=== PATIENT | female | born 1985 | race Caucasian/White ===

== ENCOUNTER 2020-08-20 14:58 | Emergency (ER) | payer MEDICAID ==
[2020-08-20] MEDS ORDERED: BACITRACIN ZINC OINT 1 PACKET TOP STA (15:36)
[2020-08-20] MEDS ORDERED: HYDROcod/ACETAM 5/325 MG TABLET PO STA (15:36)
--- NOTE | 2020-08-20 15:43 | ED Physician Documentation ---
History of Present Illness - Stated complaint Stated Complaint: LT ARM INJURY - Chief complaint Chief Complaint: Trauma Ext - History obtained from History obtained from: Patient - History of Present Illness Timing: Today Pain level max: 8 Pain level now: 6 - Additonal information Additional information: Patient is a 34-year-old female who presents to the emergency department after a fall off of a retaining wall today. She scraped her left arm on the concrete driveway. Complains of pain to the left forearm, left elbow, left humerus and left shoulder. Worse with movement, better with rest. Tetanus is up-to-date. Patient is right-handed. No head injury. No neck or back pain. No numbness or tingling. She is not on blood thinners. Denies any possibility of . Review of Systems Constitutional: denies: Fever, Chills GI: denies: Vomiting, Diarrhea Skin: denies: Rash Musculoskeletal: denies: Neck pain, Back pain Neurologic: denies: Headache PD PAST MEDICAL HISTORY - Past Medical History Past Medical History: Yes Neuro: Migraines Psych: Post traumatic stress disorder - Past Surgical History Past Surgical History: Yes General: Cholecystectomy Ortho: Other - Present Medications Home Medications: Ambulatory Orders Medication Instructions Recorded Confirmed Amitriptyline [Elavil] 10 mg PO DAILY 08/20/20 08/20/20 Escitalopram Oxalate [Lexapro] 20 mg PO DAILY 08/20/20 08/20/20 HYDROcod/ACETAM 5/325 [Johnson 5/325] 1 - 2 ea PO Q6H PRN #14 tablet 08/20/20 Propranolol [Inderal] 20 mg PO BID 08/20/20 08/20/20 traZODone [Desyrel] 50 mg PO HS 08/20/20 08/20/20 - Allergies Allergies/Adverse Reactions: Allergies Allergy/AdvReac Type Severity Reaction Status Date / Time No Known Drug Allergies Allergy Verified 08/20/20 15:18 - Social History Does the pt smoke?: No Smoking Status: Never smoker Does the pt drink ETOH?: No Does the pt have substance abuse?: No - Immunizations Immunizations are current?: Yes PD ED PE NORMAL - Vitals Vital signs reviewed: Yes - General General: Alert and oriented X 3, No acute distress - HEENT HEENT: Atraumatic, PERRL, Moist mucous membranes - Neck Neck: Supple, no meningeal sign, No bony TTP - Cardiac Cardiac: RRR - Respiratory Respiratory: No respiratory distress, Clear bilaterally - Abdomen Abdomen: Soft, Non tender, Non distended - Back Back: No spinal TTP - Derm Derm: Warm and dry - Extremities Extremities: Other (Tender to palpation over the left forearm, large abrasion from the mid forearm to the elbow. Mild tenderness about the elbow. Mild tenderness along the humerus, no tenderness about the glenohumeral joint. Neurovascularly intact. No deformities. Limited ROM elbow and shoulder 2/2 pain.) - Neuro Neuro: Alert and oriented X 3 - Psych Psych: Normal mood, Normal affect Results - Vitals Vitals: Vital Signs - 24 hr 08/20/20 08/20/20 15:12 17:25 Temperature 36.3 C L 36.7 C Heart Rate 91 96 Respiratory 16 16 Rate Blood Pressure 157/91 H 124/108 H O2 Saturation 99 96 Oxygen O2 Source Room air - Rads (name of study) L humerus xray Radiology: Prelim report reviewed, EMP read contemporaneously, See rad report L forearm xray Radiology: Prelim report reviewed, EMP read contemporaneously, See rad report PD MEDICAL DECISION MAKING - ED course Complexity details: reviewed results, re-evaluated patient, considered differential, d/w patient ED course: Patient with a radial neck/radial head fracture. Nondisplaced. Placed in a sling for comfort. Will prescribe pain medication for home. Wounds were cleansed and bandaged. Td UTD Patient counseled regarding signs and symptoms for which I believe and urgent re-evaluation would be necessary. Patient with good understanding of and agreement to plan and is comfortable going home at this time This document was made in part using voice recognition software. While efforts are made to proofread this document, sound alike and grammatical errors may occur. L Humerus xray: IMPRESSION: Suspected radial neck fracture. No abnormality of the humerus. L forearm xray Nondisplaced fracture of the radial neck with intra-articular extension to the radial head. Departure - Departure Disposition: 01 Home, Self Care Clinical Impression: Abrasion Radial head fracture, closed Qualifiers: Encounter type: initial encounter Fracture alignment: nondisplaced Laterality: left Qualified Code(s): S52.125A - Nondisplaced fracture of head of left radius, initial encounter for closed fracture Condition: Good Instructions: ED Abrasion, ED Fx Radial Head Follow-Up: [facility] [Provider Group] - Within 1 week Prescriptions: HYDROcod/ACETAM 5/325 [Johnson 5/325] 1 - 2 ea PO Q6H PRN #14 tablet PRN Reason: Pain Comments: Follow-up with orthopedics for further care. Stay in the sling as much as possible. Return if you worsen. Do not drink alcohol or drive while on narcotic pain medicine. Note that many narcotic pain relievers also contain tylenol/acetaminophen. Please ensure that your total dose of acetaminophen from all sources does not exceed 3 grams (3000mg) per day. You may constipated on this medication, take a stool softener such as "Colace" twice a day while you are on it. Also recommend a [id number]-[id number] laxative such as senna or MiraLAX any day that you do not have a bowel movement. If you received narcotic pain medication in the emergency department, do not drive or operate machinery for the next 24 hours. Xray Results: Nondisplaced fracture of the radial neck with intra-articular extension to the radial head. Discharge Date/Time: 08/20/20 17:26
--- NOTE | 2020-08-20 16:36 | XRAY Report ---
PROCEDURE: Humerus LT INDICATIONS: fall, arm pain TECHNIQUE: 3 views of the humerus were acquired. COMPARISON: None. FINDINGS: Bones: No humeral shaft fracture. There is a suspected nondisplaced radial neck fracture. No suspicio us bony lesions. Soft tissues: No suspicious soft tissue calcifications. IMPRESSION: Suspected radial neck fracture. No abnormality of the humerus. Reviewed by: Kameron Meyer on 08/20/2020 3:35 PM VISHNU Approved by: Kameron Meyer on 08/20/2020 3:35 PM VISHNU Station ID: [id number]
--- NOTE | 2020-08-20 16:37 | XRAY Report ---
PROCEDURE: Forearm LT INDICATIONS: fall, arm pain TECHNIQUE: 2 views of the forearm were acquired. COMPARISON: Same-day left humerus radiographs FINDINGS: Bones: Nondisplaced fracture of the radial neck with intra-articular extension to the radial head. No suspicious bony lesions. Soft tissues: No suspicious soft tissue calcifications or masses. IMPRESSION: Nondisplaced fracture of the radial neck with intra-articular extension to the radial head. Reviewed by: Kameron Meyer on 08/20/2020 3:36 PM VISHNU Approved by: Kameron Meyer on 08/20/2020 3:36 PM VISHNU Station ID: [id number]
[2020-08-20 17:27] VITALS: BP 124/108
== END 2020-08-20 17:26 | disposition home or self-care (01) ==
LOC: ED 14:58
DX: S52.135A Nondisplaced fracture of neck of left radius, initial encounter for closed fracture (principal); S50.812A Abrasion of left forearm, initial encounter; W17.89XA Other fall from one level to another, initial encounter; Y93.H9 Activity, other involving exterior property and land maintenance, building and construction
CPT/HCPCS: 73060; 73090; 99283; 99284; A9270

== ENCOUNTER 2020-10-27 13:08 | Outpatient (CLI) | payer MEDICAID ==
--- NOTE | 2020-10-27 18:57 | XRAY Report ---
PROCEDURE: Elbow 3 View LT INDICATIONS: NONDISPLACED FX OF HEAD OF L RADIUS TECHNIQUE: 3 views of the elbow were acquired. COMPARISON: August 20, 2020 FINDINGS: Bones: There is a healing fracture of the radial head with resorption of the fracture line evidence o f bridging callus. No obvious involvement of the articular surface Soft tissues: No elbow joint effusion. No suspicious soft tissue calcifications. IMPRESSION: Healing radial head fracture Reviewed by: Eduard Ash MD on 10/27/2020 5:56 PM VISHNU Approved by: Eduard Ash MD on 10/27/2020 5:56 PM VISHNU Station ID: [id number]
== END 2020-10-27 23:59 | disposition home or self-care (01) ==
LOC: DI.N 13:08
PROVIDERS: ATTEND Physician Assistant
DX: S52.92XD Unspecified fracture of left forearm, subsequent encounter for closed fracture with routine healing (principal)

== ENCOUNTER 2020-11-23 11:42 | Outpatient (CLI) | payer MEDICAID ==
[2020-11-23 18:25] LABS: BASOPHILS % (AUTO) 0.3 %; EOSINOPHILS % (AUTO) 0.3 %; HGB - HEMOGLOBIN 13.6 g/dL (12.0-16.0); LYMPHOCYTES # (AUTO) 2.7 10^3/uL (1.5-3.5); LYMPHOCYTES % (AUTO) 27.1 %; MEAN CORPUSCULAR HEMOGLOBIN 27.7 pg (27.0-31.0); MEAN CORPUSCULAR HGB CONC 31.6 g/dL (32.0-36.0); MEAN CORPUSCULAR VOLUME 87.6 fL (81.0-99.0); MEAN PLATELET VOLUME 9.5 fL (7.9-10.8); MONOCYTES # (AUTO) 0.6 10^3/uL (0.0-1.0); MONOCYTES % (AUTO) 5.6 %; NEUTROPHILS # (AUTO) 6.5 10^3/uL (1.5-6.6); NEUTROPHILS % (AUTO) 66.5 %; PLT - PLATELET COUNT 356 10^3/uL (130-450); RED BLOOD COUNT 4.91 10^6/uL (4.20-5.40); WHITE BLOOD COUNT 9.8 x10^3/uL (4.8-10.8)
[2020-11-23 19:53] LABS: FECAL OCCULT BLOOD (FIT) NEGATIVE (NEGATIVE)
[2020-11-23 20:03] LABS: H. PYLORIS ANTIGEN STL NEGATIVE (Negative)
== END 2020-11-23 11:43 | disposition home or self-care (01) ==
LOC: LAB.N 11:42
PROVIDERS: ATTEND Family Medicine
DX: K52.9 Noninfective gastroenteritis and colitis, unspecified (principal)
CPT/HCPCS: 36415; 81599; 82274; 83993; 85025; 87045; 87046; 87177; 87209; 87329; 87338; 87427; 87493

== ENCOUNTER 2021-04-26 08:00 | Outpatient (CLI) | payer MEDICAID | END 2021-04-26 23:59 | LOC: LAB.N 08:00 | PROVIDERS: ATTEND Physician Assistant | DX: R07.0 Pain in throat (principal); Z20.822 Contact with and (suspected) exposure to COVID-19 ==

== ENCOUNTER 2021-12-19 10:52 | Outpatient (CLI) | payer MEDICAID ==
[2021-12-19 18:25] LABS: BASOPHILS % (AUTO) 0.3 %; EOSINOPHILS % (AUTO) 0.1 %; HCT - HEMATOCRIT 43.8 % (37.0-47.0); HGB - HEMOGLOBIN 14.1 g/dL (12.0-16.0); MEAN CORPUSCULAR HEMOGLOBIN 27.3 pg (27.0-31.0); MEAN CORPUSCULAR HGB CONC 32.2 g/dL (32.0-36.0); MEAN CORPUSCULAR VOLUME 84.7 fL (81.0-99.0); MEAN PLATELET VOLUME 10.5 fL (7.9-10.8); MONOCYTES # (AUTO) 0.5 10^3/uL (0.0-1.0); NEUTROPHILS % (AUTO) 66.4 %; PLT - PLATELET COUNT 373 10^3/uL (130-450); RED BLOOD COUNT 5.17 10^6/uL (4.20-5.40); RED CELL DISTRIBUTION WIDTH 14.8 % (12.0-15.0); WHITE BLOOD COUNT 10.6 x10^3/uL (4.8-10.8)
[2021-12-19 18:35] LABS: ALBUMIN 3.5 g/dL (3.2-5.5); ALBUMIN/GLOBULIN RATIO 0.9 (1.0-2.2); ALKALINE PHOSPHATASE 73 IU/L (42-121); ALT ALANINE AMINOTRANSFERASE 15 IU/L (10-60); AST ASPARTATE AMINOTRANSFERASE 16 IU/L (10-42); BILIRUBIN,TOTAL 0.4 mg/dL (0.2-1.0); BUN - BLOOD UREA NITROGEN 15 mg/dL (6-20); CALCIUM 9.4 mg/dL (8.5-10.3); CARBON DIOXIDE - CO2 26 mmol/L (21-32); CHLORIDE 103 mmol/L (101-111); CHOL/HDL RATIO 5.8 (<4.4); CHOLESTEROL 203 mg/dL; CREATININE 0.8 mg/dL (0.4-1.0); GFR - MDRD 82 (>89); GLUCOSE 120 mg/dL (70-100); HDL CHOLESTEROL 35 mg/dL; LDL CHOLESTEROL,CALCULATED 100 mg/dL; LDL/HDL RATIO 2.9 (<4.4); POTASSIUM 4.1 mmol/L (3.5-5.0); SODIUM 138 mmol/L (135-145); TOTAL PROTEIN 7.6 g/dL (6.7-8.2); TRIGLYCERIDES 338 mg/dL; VLDL CHOLESTEROL 68 mg/dL
[2021-12-19 18:45] LABS: THYROID STIMULATING HORMONE 1.78 uIU/mL (0.34-5.60)
[2021-12-19 20:40] LABS: ESTIMATED AVERAGE GLUCOSE 134 mg/dL (70-100); HEMOGLOBIN A1c% 6.3 % (4.27-6.07)
== END 2021-12-19 10:53 | disposition home or self-care (01) ==
LOC: LAB.N 10:52
PROVIDERS: ATTEND Nurse Practitioner Family
DX: Z00.8 Encounter for other general examination (principal); R53.83 Other fatigue; Z13.220 Encounter for screening for lipoid disorders; E66.01 Morbid (severe) obesity due to excess calories
CPT/HCPCS: 36415; 80053; 80061; 83036; 83721; 84443; 85025

== ENCOUNTER 2021-12-19 15:06 | Outpatient (CLI) | payer MEDICAID ==
[2021-12-19 15:54] VITALS: BP 120/80
--- NOTE | 2021-12-19 15:54 | SLEEP CARE CONSULTATION ---
Information from patient questionnaire entered by Rajiv Parker MA. I have reviewed and concur with the information entered by Rajiv Parker MA. This document represents the service I personally performed and the decisions made by , Meena Rasheed ARNP. History of Present Illness Service Date and Time: 12/19/2021 1506 Reason for Visit: New patient (ONSET 05/20/2016, NO PRIOR SS, ) Chief Complaint: reports: Snoring, Excessive daytime sleepiness, Fatigue Date of Onset: 10 PLUS YEARS Usual bedtime: 11 - 1200 Time it takes to fall asleep: WITH TRAZODONE 15-20 MINUTES Snores at night: Yes Observed to quit breathing while asleep: Yes Sleeps alone due to snoring: No Number of times waking at night: 1-2 X Reasons for waking at night: reports: Bathroom. denies: Choking, Snoring, Gasping for air Toss, Turn, or Twitch while sleeping: Yes Recalls having dreams: Yes Usually gets out of bed at: 9-10 AM Feels refreshed in the morning: No Morning headache: Yes (3-5 times a week, or more; last couple hours w/out meds; hx migraines) Sleepy or fatigued during the day: Yes Ever fallen asleep while driving: No Takes day naps: Yes (several times a week (3 days); 1-2 hours) Dreams during day naps: Yes (has vivid dreams and some nightmares) Prior sleep studies: No Additional HPI information: I had the pleasure of seeing RAJAT MICHAEL today regarding the possibility of her having a sleep disorder. Her current complaints are snoring, fatigue and excessive daytime sleepiness. Her partner was recently diagnosed with BETHEL. She is now recognizing that she is always tired and can always take a nap. She does snoring and has woke herself up with her snoring. She has woken up with headaches too. She takes trazodone 50 mg nightly and will fall asleep in 15-20 minutes. If she doesn't take her trazodone she will not be able to fall asleep. She has severe PTSD and it can take 2 hours to fall asleep on her own. She also has dreams and has been having nightmares for a long time. She has a history of migraines and anxiety. She does not wake up feeling rested normally. - Parasomnia Symptoms Ever been unable to move upon waking from sleep: No Walks in sleep: No Talks in sleep: No Ever acted out dreams in sleep: No Ever felt weak in the knees when startled or emotional: No Bothered by creepy, crawly, restless sensations in legs: No Problems with memory or concentration: Yes (both; feels like she doesn't have enough "executive" concious to decide) Subjective Initial [place] Sleepiness Scale score: 11 (12/19/2021) Past Medical History Past Medical History: reports: Claustrophobia, Anxiety, Mood disorder (PTSD; migraines; chronic diarrhea, insomnia), GERD (Reflux), Other (PTSD, CHONIC DIARRHEA, INSOMNIA, MIGRAINES) Social History The patient's occupation is a [employer]. Patient is Single and lives in [place]. Have you smoked in the past 12 months: No Alcohol use: No Caffeine use: Yes Caffeine amount and frequency: 2-3 X WEEKLY Family History Family history of sleep disordered breathing: Yes Family Hx Sleep Apnea: Mother: Snoring, Father: Snoring Allergies and Home Medications Known drug allergies: No Drug allergies reviewed: Yes (NKDA) Home medication list reviewed: Yes Allergy and home medication list: Allergies No Known Drug Allergies Allergy (Verified 08/20/20 15:18) Medications: Lexapro 20 mg Propanalol, 60 mg daily, in divided doses Metamucil 4 capsules in divided doses Colestipol 1 gm x 4 pills in divided doses Dicyclomine 10 mg tid Pantoprazole 40 mg Amitryptyline 10 mg control - Simpesse tabs 91s Review of Systems Weight gain over past 5 years: 50 lb Cardiovascular: reports: leg or foot swelling Gastrointestinal: reports: heartburn, diarrhea, abdominal pain Neurological: reports: headaches, other (hx of migraines). denies: head trauma Psychiatric: reports: anxiety, claustrophobia, other (PTSD) Ear/Nose/Throat: denies: injury to nose, tonsillectomy, wisdom teeth removed Endocrine: reports: sluggishness. denies: thyroid disease Musculoskeletal: reports: back pain (sometimes) Immunologic: denies: allergies to food or environment Physical Exam Vital signs obtained and entered by: Esdras PARKER CMA AAMA Blood Pressure: 120/80 (RESP 18, PULSE 84, RIGHT,) Heart Rate: 86 O2 Saturation: 99 Height: 5 ft 6 in Weight: 325 lb (CLOTHES) Weight change since last visit: MAINTAIN Body Mass Index: 52.4 BMI Classification: Morbidly Obese Neck circumference: 16 (INCHES) Mouth and throat: narrow oropharynx Soft palate: normal Hard palate: normal Uvula: normal Uvula visualization: 50% Mallampati Class II Tongue: enlarged in size with teeth collado on lateral edges Tonsils: 3+/kissing Neck: normal w/o lymphadenopathy or thyromegaly Heart: regular rate and rhythm Lungs: clear bilaterally Impression and Plan 1. Suspected Obstructive Sleep Apnea-Hypopnea Syndrome, as suggested by a history of loud and irregular snoring, morning headache, unrefreshed sleep, cognitive impairment, and excessive daytime sleepiness. Narrow oropharynx and obesity are common predisposing factors for obstructive sleep apnea-hypopnea syndrome. I recommend proceeding to polysomnography to confirm the diagnosis and to assess severity. If the patient has significant sleep disordered breathing, a manual CPAP titration study will also be performed to find the optimal treatment pressure. I informed the patient of what the sleep studies involve and after some discussion, obtained agreement to proceed. The pathophysiology of obstructive sleep apnea-hypopnea syndrome was discussed with the patient and health risks of cardiovascular and cerebrovascular disease if not treated. Risks of drowsy driving discussed in detail and patient advised to avoid long distance driving and to socket puller at the first sign of drowsiness. Patient agreed to plan. * Schedule polysomnography * Avoid long distance driving or driving when feeling sleepy. * Avoid alcohol, sedative and muscle relaxant around bedtime. * Attempt to lose weight. * Review instructions provided by trained office staff on how to prepare for the sleep study. * Return for follow-up after sleep study completed. Counseling Topics: Weight loss health impact Visit Type: In Office Time Spent with Patient (minutes): 31 Provider Statement: I spent 100% of the Face to Face Visit with the patient with greater than 50% spent counseling the patient and coordination of care.
== END 2021-12-19 15:07 | disposition home or self-care (01) ==
LOC: SC 15:06
PROVIDERS: ATTEND Nurse Practitioner Family
DX: G47.10 Hypersomnia, unspecified (principal); R53.83 Other fatigue; G47.00 Insomnia, unspecified; R51.9 Headache, unspecified; R06.83 Snoring; E66.01 Morbid (severe) obesity due to excess calories; Z68.43 Body mass index [BMI] 50.0-59.9, adult
CPT/HCPCS: 99203; 99212

== ENCOUNTER 2022-01-18 15:52 | Outpatient (CLI) | payer MEDICAID ==
--- NOTE | 2022-01-18 15:51 | SLEEP CARE CONSULTATION ---
Information from patient questionnaire entered by Rajiv Oswald MA. I have reviewed and concur with the information entered by Rajiv Oswald MA. This document represents the service I personally performed and the decisions made by , Meena Rasheed ARNP. History of Present Illness Service Date and Time: 01/18/2022 1520 Initial [place] Sleepiness Scale score: 11 (12/19/2021) Current [place] Sleepiness Scale score: 11 Additional HPI information: RAJAT MICHAEL returns via video telehealth visit for follow up and results of the recently performed home sleep study. I explained the pathophysiology behind obstructive sleep apnea. We then spent quite a bit of time discussing different treatment options. For mild obstructive sleep apnea, surgery and oral appliance are alternatives to nasal CPAP therapy but in moderate or severe cases, nasal CPAP is the most effective and reliable treatment. I reviewed the impact of weight changes on sleep apnea and strongly recommended losing weight. After some discussion, the patient opted to go with the nasal CPAP therapy. Nasal autoCPAP set at 4-15 cmH20 will be ordered with rationale explained. A manual titration study will be ordered if unable to find optimal pressure with office adjustments. I explained how CPAP machine works and what to expect when using the machine. Using CPAP every night in order to get used to it was emphasized. Patient advised to put CPAP mask on before getting into bed so as not to fall asleep without CPAP. To assist acclimation to CPAP use, it could also be used for a short time during day while reading or watching TV. The patient was instructed to call the CPAP supplier to discuss any mechanical problem that may occur. If the mask given is uncomfortable or is difficult to keep on through the night even with adjustment, contact the CPAP supplier as many will replace with another mask style if notified before 30 days. If snoring or perceives is not getting enough air or too much air from the machine, notify this office. Patient does not drink alcohol. Patient was cautioned about risks of drowsy driving until sleepiness symptoms resolve. Patient denies drowsy driving. Sleep Study - Results Type of Sleep Study: Home sleep study (F/U HST, 01/03/2022 [facility], POS,) Prior sleep studies: No Polysomnography/Home Sleep Study results: Physician Impression: The quality of the study is good. The length of the study is adequate (> 240 minutes). Please also see the tabulated and graphic data. 1. Obstructive Sleep Apnea-Hypopnea (ICD-10 G47.33), severe, with an AHI of 31.8/hr and april SaO2 of 53%. During the study, the patient had 169 apneas (169 obstructive, 0 c entral, 0 mixed) and 17 hypopneas. The longest episode lasted 70.0 seconds. The respiratory events occurred independently of sleep stage and body position (supine AHI was 36.7 and non-supine, 29.47). 2. Hypoxemia (ICD-10 R09.02), severe, with the lowest oxygen saturation of 53 % and 23.5 minutes with SaO2 under 90%. Baseline oxygen saturation was normal (Average oxygen saturation was 94%). Allergies and Home Medications Home medication list reviewed: Yes (no changes) Review of Systems Review of systems same as previous: Yes (no changes) Physical Exam Vital signs obtained and entered by: ALE CHAVEZ Height: 5 ft 6 in Weight: 325 lb (pt reported) Body Mass Index: 52.4 BMI Classification: Morbidly Obese Impression and Plan 1. Obstructive Sleep Apnea-Hypopnea Syndrome, severe, with lowest oxygen saturation of 53%. Obviously this is the cause of the patients symptoms of unrefreshed sleep, and excessive daytime sleepiness. Positive pressure therapy could benefit anxiety, mood disorder (PTSD), migraines and gastric reflux. As mentioned above, the patient will be started on nasal autoCPAP therapy with pressure set at 4-15 cmH2O. Compliance guidelines also reviewed. A copy of compliance guidelines will be given for reference at check out. 2. Hypoxemia, severe, with the lowest oxygen saturation of 53 % and 23.5 minutes with SaO2 under 90%. Her baseline oxygen saturation was normal with an average oxygen saturation of 94%. * Nasal auto CPAP therapy, pressure at 4-15 cm H2O. * Attempt to lose weight. * Avoid alcohol consumption near bedtime. * Avoid supine sleep until using CPAP. * The patient is again cautioned about driving until sleepiness completely resolves. * Return one month after CPAP obtained. I will assess response to therapy and compliance at that time. Counseling Topics: Weight loss health impact Visit Type: Telehealth Video Video Type: Doximity Patient Location: Home Location of Provider: Office Patient agrees and consents to this telehealth visit type: Yes Patient agrees to have their insurance billed: Yes Time Spent with Patient (minutes): 20 Provider Statement: I spent 100% of the Telehealth Video Call with the patient with greater than 50% spent counseling the patient and coordination of care.
== END 2022-01-18 15:53 | disposition home or self-care (01) ==
LOC: SC 15:52
PROVIDERS: ATTEND Nurse Practitioner Family
DX: G47.33 Obstructive sleep apnea (adult) (pediatric) (principal); R09.02 Hypoxemia; E66.01 Morbid (severe) obesity due to excess calories; Z68.43 Body mass index [BMI] 50.0-59.9, adult

== ENCOUNTER 2022-01-29 11:45 | Outpatient (CLI) | payer MEDICAID ==
[2022-01-29 18:03] LABS: BASOPHILS % (AUTO) 0.3 %; HCT - HEMATOCRIT 42.3 % (37.0-47.0); HGB - HEMOGLOBIN 13.5 g/dL (12.0-16.0); LYMPHOCYTES # (AUTO) 3.2 10^3/uL (1.5-3.5); LYMPHOCYTES % (AUTO) 32.3 %; MEAN CORPUSCULAR HEMOGLOBIN 26.7 pg (27.0-31.0); MEAN CORPUSCULAR HGB CONC 31.9 g/dL (32.0-36.0); MEAN CORPUSCULAR VOLUME 83.6 fL (81.0-99.0); MEAN PLATELET VOLUME 10.4 fL (7.9-10.8); MONOCYTES # (AUTO) 0.5 10^3/uL (0.0-1.0); MONOCYTES % (AUTO) 5.5 %; NEUTROPHILS # (AUTO) 6.1 10^3/uL (1.5-6.6); NEUTROPHILS % (AUTO) 61.6 %; PLT - PLATELET COUNT 342 10^3/uL (130-450); RED BLOOD COUNT 5.06 10^6/uL (4.20-5.40); RED CELL DISTRIBUTION WIDTH 14.6 % (12.0-15.0); WHITE BLOOD COUNT 9.8 x10^3/uL (4.8-10.8)
[2022-01-29 18:13] LABS: CHOL/HDL RATIO 5.3 (<4.4); CHOLESTEROL 211 mg/dL; HDL CHOLESTEROL 40 mg/dL; LDL CHOLESTEROL,CALCULATED 134 mg/dL; LDL/HDL RATIO 3.4 (<4.4); TRIGLYCERIDES 183 mg/dL; VLDL CHOLESTEROL 37 mg/dL
== END 2022-01-29 11:46 | disposition home or self-care (01) ==
LOC: LAB.N 11:45
PROVIDERS: ATTEND Nurse Practitioner
DX: L70.0 Acne vulgaris (principal); Z79.899 Other long term (current) drug therapy
CPT/HCPCS: 36415; 80061; 83721; 84702; 84703; 85025

== ENCOUNTER 2022-02-15 07:46 | Outpatient (CLI) | payer MEDICAID ==
--- NOTE | 2022-02-15 08:53 | CT Report ---
PROCEDURE: HEAD WO INDICATIONS: DIZZINESS TECHNIQUE: Noncontrast 4.5 mm thick angled axial sections acquired from the foramen magnum to the vertex. For r adiation dose reduction, the following was used: automated exposure control, adjustment of mA and/or kV according to patient size. COMPARISON: None. FINDINGS: Image quality: Excellent. CSF spaces: Basal cisterns are patent. No extra-axial fluid collections. Ventricles are normal in size and shape. Brain: No midline shift. No intracranial masses or hemorrhage. Ewing-white matter interface is norm al. Skull and face: Calvarium and visualized facial bones are intact, without suspicious lesions. Sinuses: Visualized sinuses and mastoids are clear. IMPRESSION: 1. No acute intracranial process. Reviewed by: Juli Quinn MD on 02/15/2022 8:52 AM PDT Approved by: Juli Quinn MD on 02/15/2022 8:52 AM PDT Station ID: [id number]
== END 2022-02-15 07:47 | disposition home or self-care (01) ==
LOC: DI 07:46
PROVIDERS: ATTEND Nurse Practitioner
DX: R42 Dizziness and giddiness (principal)

== ENCOUNTER 2022-02-28 07:48 | Outpatient (CLI) | payer MEDICAID | END 2022-02-28 07:49 | disposition home or self-care (01) | LOC: LAB.N 07:48 | PROVIDERS: ATTEND Nurse Practitioner | DX: L70.0 Acne vulgaris (principal); Z79.899 Other long term (current) drug therapy | CPT/HCPCS: 36415; 84702 ==

== ENCOUNTER 2022-03-20 09:47 | Outpatient (CLI) | payer MEDICAID ==
--- NOTE | 2022-03-20 09:36 | SLEEP CARE CONSULTATION ---
Information from patient questionnaire entered by Yandy Howell. I have reviewed and concur with the information entered by Yandy Howell. This document represents the service I personally performed and the decisions made by me, Meena Rasheed ARNP. History of Present Illness Service Date and Time: 03/20/2022 0920 Previous diagnosis: Severe, Obstructive Sleep Apnea-Hypopnea Syndrome AHI: 31.8 (in 2021) Reason for follow up: first compliance (NATHAN) Equipment type: CPAP Equipment obtained from: Other ([facility]; getting supplies) Mask style: Nasal Backup mask available: No (will keep old mask when replaced) Last cushion change: 2 weeks ago Prior sleep studies: No Type of Sleep Study: Home sleep study (F/U HST, 01/03/2022 [facility], POS,) HPI additional information: RAJAT MICHAEL was diagnosed to have severe, AHI 31.8, obstructive sleep apnea- hypopnea syndrome and returns via video telehealth visit today for CPAP therapy first compliance follow-up. Sleep Study - Results Type of Sleep Study: Home sleep study (F/U HST, 01/03/2022 [facility], POS,) Prior sleep studies: No CPAP Compliance Data - Data Reviewed with Patient Average duration of nightly device use: 8 hours 12 minutes Compliance rate %: 90.7 (41/43 days used) Current pressure setting (cmH2O): 4-15 (median 7.5, avg 8.6) Average residual AHI: 1.3 Central apnea: 0.1 Average large leak: 4.0 lpm Subjective Missed days of use due to: reports: illness (has had Covid) Patient concerns: reports: mask discomfort, air blowing in eyes. denies: aerophagia, mask leak noise, condensation in mask/hose, nasal congestion, dry mouth, nose, throat, epistaxis Observed to snore while using device: No Current pressure setting perceived as: comfortable On therapy, patient: reports: sleeping better, awakening more refreshed, being more awake and alert during the day, more rested overall. denies: drowsiness while driving Initial [place] Sleepiness Scale score: 11 (12/19/2021) Current [place] Sleepiness Scale score: 9 (03/20/22) Allergies and Home Medications Drug allergies reviewed: Yes (NKDA) Home medication list reviewed: Yes (Accutane) Physical Exam Vital signs obtained and entered by: VIA PHONE Height: 5 ft 6 in Weight: 320 lb (pt reported) Body Mass Index: 51.6 BMI Classification: Morbidly Obese Impression and Plan 1. Obstructive Sleep Apnea-Hypopnea Syndrome, severe, with good treatment compliance and good apnea control. On CPAP therapy, the patient has better sleep quality and is more rested overall. Patient has had significant improvement of her sleep apnea and is having good results with its use. She does have a little trouble when for starting with the CPAP at night because she feels a little claustrophobic like she cannot get enough air. She states it improves once it ramps up. I will increase her ramp starting pressure to 6 cm H2O to reduce this air hunger. The patients pressure will be changed to autoCPAP 6-10 cmH20 to reflect pressure being used. Patient advised to contact me if pressure change is uncomfortable so that it can be adjusted. Goals for apnea control discussed. Patient's apnea severity and rationale for treatment to reduce apnea, improve sleep quality and reduce cardiovascular and cerebrovascular events was reviewed. I also reviewed the benefit of consistent device use of CPAP for gastric reflux, anxiety, migraines and mood disorder (PTSD). 2. Obesity, unspecified. Currently patients BMI is 51.6. Obesity increases the risk of apnea, CPAP pressure requirements and overall health risks especially cardiovascular and diabetes. Thus patient is advised to lose weight. * Change auto CPAP pressure to 6-10 cmH2O * Notify me if snoring with mask or feeling that the pressure is too much or too little * Attempt to lose weight * Call this office if any problems using CPAP * Return for follow up in 1-2 months, or sooner if concerns arise Counseling Topics: Spare mask, Weight loss health impact Visit Type: Telehealth Video Video Type: Doximity Location of Provider: Office Patient agrees and consents to this telehealth visit type: Yes Patient agrees to have their insurance billed: Yes Time Spent with Patient (minutes): 22 Provider Statement: I spent 100% of the Telehealth Video Call with the patient with greater than 50% spent counseling the patient and coordination of care.
== END 2022-03-20 09:48 | disposition home or self-care (01) ==
LOC: SC 09:47
PROVIDERS: ATTEND Nurse Practitioner Family
DX: G47.33 Obstructive sleep apnea (adult) (pediatric) (principal); E66.01 Morbid (severe) obesity due to excess calories; Z68.43 Body mass index [BMI] 50.0-59.9, adult

== ENCOUNTER 2022-03-26 08:00 | Outpatient (CLI) | payer MEDICAID | END 2022-03-26 23:59 | disposition home or self-care (01) | LOC: LAB.N 08:00 | PROVIDERS: ATTEND Nurse Practitioner | DX: R30.0 Dysuria (principal) | CPT/HCPCS: 87077; 87086; 87181 ==

== ENCOUNTER 2022-04-24 10:00 | Outpatient (CLI) | payer MEDICAID ==
[2022-04-24 10:45] VITALS: BP 124/80
--- NOTE | 2022-04-24 10:45 | SLEEP CARE CONSULTATION ---
Information from patient questionnaire entered by Yandy Howell. I have reviewed and concur with the information entered by Yandy Howell. This document represents the service I personally performed and the decisions made by me, Meena Rasheed ARNP. History of Present Illness Service Date and Time: 04/24/2022 1000 Previous diagnosis: Severe, Obstructive Sleep Apnea-Hypopnea Syndrome AHI: 31.8 (in 2021) Reason for follow up: one month (F/U PRESSURE CHANGE ) Equipment type: CPAP (NATHAN) Equipment obtained from: Other ([facility]; getting supplies) Mask style: Nasal pillows Mask brand: [employer] Backup mask available: Yes (other mask) Last cushion change: 2 weeks ago Prior sleep studies: No Type of Sleep Study: Home sleep study (F/U HST, 01/03/2022 [facility], POS,) HPI additional information: RAJAT MICHAEL was diagnosed to have severe, AHI 31.8, obstructive sleep apnea- hypopnea syndrome and returned today for CPAP therapy one month with pressure change follow-up. Sleep Study - Results Type of Sleep Study: Home sleep study (F/U HST, 01/03/2022 [facility], POS,) Prior sleep studies: No CPAP Compliance Data - Data Reviewed with Patient Average duration of nightly device use: 8 HRS 15 MIN Compliance rate %: 82.2 (02/05/22-05/05/22; 74/90 days used) Current pressure setting (cmH2O): 6-10 Average residual AHI: 0.9 Central apnea: 0.1 Average large leak: 6 minutes Subjective Missed days of use due to: reports: illness (had covid) Patient concerns: reports: mask leak noise (sometimes when adjusting mask). denies: aerophagia, mask discomfort, air blowing in eyes, condensation in mask/hose, nasal congestion, dry mouth, nose, throat, epistaxis Observed to snore while using device: No Current pressure setting perceived as: comfortable On therapy, patient: reports: sleeping better, awakening more refreshed, being more awake and alert during the day, more rested overall. denies: drowsiness while driving Initial [place] Sleepiness Scale score: 11 (12/19/2021) Current [place] Sleepiness Scale score: 7 (04/24/22) Allergies and Home Medications Drug allergies reviewed: Yes (NKDA) Home medication list reviewed: Yes (Metformin, Rosuvastatin) Review of Systems Review of systems same as previous: No (Diabetes, type II) Physical Exam Vital signs obtained and entered by: YANDY Brownlee MA Blood Pressure: 124/80 (LEFT ARM ) Cuff size: long Heart Rate: 85 O2 Saturation: 94 Height: 5 ft 6 in Weight: 327 lb 3.2 oz Body Mass Index: 52.8 BMI Classification: Morbidly Obese Impression and Plan 1. Obstructive Sleep Apnea-Hypopnea Syndrome, severe, with good treatment compliance and good apnea control. On CPAP therapy, the patient has better sleep quality and is more rested overall. Patient has significant improvement of their sleep apnea and are satisfied with current CPAP therapy. Patient denies problems with oral dryness, nasal congestion, epistaxis, skin irritation or aerophagia. Patient's apnea severity and rationale for treatment to reduce apnea, improve sleep quality and reduce cardiovascular and cerebrovascular events was reviewed. I also reviewed the benefit of consistent device use of CPAP for gastric reflux, mood disorder (PTSD), anxiety and migraines. 2. Obesity, unspecified. Currently patients BMI is 52.8. Obesity increases the risk of apnea, CPAP pressure requirements and overall health risks especially cardiovascular and diabetes. Thus patient is advised to lose weight. The patient's CPAP pressure range should accommodate some weight loss. Symptoms to report for additional pressure adjustment discussed. * Continue auto CPAP pressure at 6-10 cmH2O * Notify me if snoring with mask or feeling that the pressure is too much or too little * Attempt to lose weight * Call this office if any problems using CPAP * Return for follow up in 3 months, or sooner if concerns arise Counseling Topics: Spare mask, Weight loss health impact Visit Type: In Office Time Spent with Patient (minutes): 20 Provider Statement: I spent 100% of the Face to Face Visit with the patient with greater than 50% spent counseling the patient and coordination of care.
== END 2022-04-24 10:01 | disposition home or self-care (01) ==
LOC: SC 10:00
PROVIDERS: ATTEND Nurse Practitioner Family
DX: G47.33 Obstructive sleep apnea (adult) (pediatric) (principal); E66.9 Obesity, unspecified; Z68.43 Body mass index [BMI] 50.0-59.9, adult
CPT/HCPCS: 99212; 99213

== ENCOUNTER 2022-05-14 23:33 | Emergency (ER) | payer MEDICAID ==
[2022-05-15 00:12] LABS: BASOPHILS % (AUTO) 0.4 %; EOSINOPHILS % (AUTO) 0.1 %; HCT - HEMATOCRIT 44.6 % (37.0-47.0); HGB - HEMOGLOBIN 13.8 g/dL (12.0-16.0); LYMPHOCYTES # (AUTO) 3.8 10^3/uL (1.5-3.5); LYMPHOCYTES % (AUTO) 42.8 %; MEAN CORPUSCULAR HEMOGLOBIN 26.3 pg (27.0-31.0); MEAN CORPUSCULAR HGB CONC 30.9 g/dL (32.0-36.0); MEAN PLATELET VOLUME 9.3 fL (7.9-10.8); MONOCYTES # (AUTO) 0.6 10^3/uL (0.0-1.0); MONOCYTES % (AUTO) 7.2 %; NEUTROPHILS # (AUTO) 4.4 10^3/uL (1.5-6.6); NEUTROPHILS % (AUTO) 49.3 %; PLT - PLATELET COUNT 348 10^3/uL (130-450); RED BLOOD COUNT 5.25 10^6/uL (4.20-5.40); RED CELL DISTRIBUTION WIDTH 14.6 % (12.0-15.0); WHITE BLOOD COUNT 8.9 x10^3/uL (4.8-10.8)
[2022-05-15 00:22] LABS: ALBUMIN 3.3 g/dL (3.2-5.5); ALBUMIN/GLOBULIN RATIO 0.8 (1.0-2.2); BILIRUBIN,TOTAL 0.4 mg/dL (0.2-1.0); CALCIUM 8.7 mg/dL (8.5-10.3); CREATININE 0.6 mg/dL (0.4-1.0); POTASSIUM 3.7 mmol/L (3.5-5.0); TOTAL PROTEIN 7.4 g/dL (6.7-8.2)
[2022-05-15 01:00] LABS: BILIRUBIN,URINE NEGATIVE (NEGATIVE); GLUCOSE, URINE (UA) NEGATIVE (NEGATIVE); KETONES,URINE (UA) NEGATIVE (NEGATIVE); LEUKOCYTE ESTERASE, URINE NEGATIVE (NEGATIVE); NITRITE,URINE NEGATIVE (NEGATIVE); OCCULT BLOOD,URINE TRACE-INTA (NEGATIVE); PROTEIN,URINE NEGATIVE (NEGATIVE); UROBILINOGEN,URINE 0.2 (NORMAL) E.U./dL (NORMAL)
[2022-05-15 01:03] LABS: CLARITY,URINE CLEAR (CLEAR); HCG UR QUAL NEGATIVE
[2022-05-15] MEDS ORDERED: ONDANSETRON ODT 4 MG Prepack 2 TL PRN (01:44)
[2022-05-15] MEDS ORDERED: ONDANSETRON ODT 4 MG TABLET TL STA (01:44)
--- NOTE | 2022-05-15 01:46 | ED Physician Documentation ---
History of Present Illness - Stated complaint Stated Complaint: UPPER ABD PX, N/V/D - Chief complaint Chief Complaint: Abd Pain - History obtained from History obtained from: Patient, Family (partner / significant other) - Additonal information Additional information: 36yF with pmh IBS p/w BL upper abdominal pain, sudden onset and bandlike, sharp radiating diffusely, starting suddenly yesterday while watching tv. a/w nausea but no vomiting. of note, patient has had multiple med changes recently including starting metformin and increasing dicyclomine from 30 to 60. also on abx for uti. denies fever, diarrhea. Review of Systems Ten Systems: 10 systems reviewed and negative Constitutional: denies: Fever, Chills GI: reports: Abdominal Pain, Nausea. denies: Vomiting PD PAST MEDICAL HISTORY - Past Medical History Past Medical History: Yes Respiratory: Sleep apnea, CPAP use Neuro: Migraines, Other Endocrine/Autoimmune: Type 2 diabetes GI: GERD, Chronic diarrhea Psych: Post traumatic stress disorder Other Past Medical History: Vertigo - Past Surgical History Past Surgical History: Yes General: Cholecystectomy Ortho: Other - Present Medications Home Medications: Ambulatory Orders Medication Instructions Recorded Confirmed Amitriptyline [Elavil] 10 mg PO DAILY 08/20/20 05/15/22 Escitalopram Oxalate [Lexapro] 20 mg PO DAILY 08/20/20 05/15/22 Propranolol [Inderal] 20 mg PO BID 08/20/20 05/15/22 traZODone [Desyrel] 50 mg PO HS 08/20/20 05/15/22 ISOtretinoin [Accutane] See Rx Instructions .ROUTE .COMPLEX 03/20/22 05/15/22 Metformin HCl [Metformin ER See Rx Instructions .ROUTE .COMPLEX 04/24/22 05/15/22 Gastric] Rosuvastatin Calcium [Crestor] See Rx Instructions .ROUTE .COMPLEX 04/24/22 05/15/22 Colestipol HCl [Colestid] 1 g PO BID 05/15/22 05/15/22 Dicyclomine [Bentyl] 20 mg PO TID 05/15/22 05/15/22 Naproxen 500 mg PO PRN 05/15/22 Ondansetron Odt [Zofran Odt] 4 mg TL Q6H PRN #10 tablet 05/15/22 Psyllium Husk [Metamucil] 1.6 g PO BID 05/15/22 05/15/22 Rizatriptan Benzoate [Rizatriptan] 10 mg PO PRN 05/15/22 l-Norgest/E.estradiol-E.estrad 1 tab PO DAILY 05/15/22 05/15/22 [Simpesse 0.15-0.03-0.01 mg Tab] - Allergies Allergies/Adverse Reactions: Allergies Allergy/AdvReac Type Severity Reaction Status Date / Time No Known Drug Allergies Allergy Verified 05/14/22 23:46 - Social History Does the pt smoke?: No Smoking Status: Never smoker Does the pt drink ETOH?: No Does the pt have substance abuse?: No Substance Use and Type: Marijuana - Immunizations Immunizations are current?: Yes - POLST Patient has POLST: No PD ED PE NORMAL - Vitals Vital signs reviewed: Yes - General General: Alert and oriented X 3, No acute distress - HEENT HEENT: Atraumatic, PERRL - Neck Neck: Supple, no meningeal sign - Cardiac Cardiac: RRR - Respiratory Respiratory: No respiratory distress, Clear bilaterally - Abdomen Abdomen: Non tender, Non distended, Other (discomfort to BL UQ palpation) Results - Vitals Vitals: Vital Signs - 24 hr 05/14/22 05/15/22 05/15/22 23:39 00:52 01:53 Temperature 36.7 C 36.8 C Heart Rate 99 96 90 Respiratory 18 16 16 Rate Blood Pressure 151/99 H 161/102 H 168/78 H O2 Saturation 97 97 98 Oxygen O2 Source Room air - Labs Labs: Laboratory Tests 05/14/22 05/14/22 05/14/22 23:55 23:55 23:58 WBC 8.9 RBC 5.25 Hgb 13.8 Hct 44.6 MCV 85.0 MCH 26.3 L MCHC 30.9 L RDW 14.6 Plt Count 348 MPV 9.3 Neut # (Auto) 4.4 Lymph # (Auto) 3.8 H [place] # (Auto) 0.6 Eos # (Auto) 0.0 Baso # (Auto) 0.0 Absolute Nucleated RBC 0.00 Nucleated RBC % 0.0 Sodium 136 Potassium 3.7 Chloride 101 Carbon Dioxide 24 Anion Gap 11.0 BUN 11 Creatinine 0.6 Estimated GFR (MDRD) 114 Glucose 158 H Calcium 8.7 Total Bilirubin 0.4 AST 24 ALT 17 Alkaline Phosphatase 98 Total Protein 7.4 Albumin 3.3 Globulin 4.1 Albumin/Globulin Ratio 0.8 L Lipase 63 H Urine Color YELLOW Urine Clarity CLEAR Urine pH 6.0 Ur Specific [place] <=1.005 Urine Protein NEGATIVE Urine Glucose (UA) NEGATIVE Urine Ketones NEGATIVE Urine Occult Blood TRACE-INTA Urine Nitrite NEGATIVE Urine Bilirubin NEGATIVE Urine Urobilinogen 0.2 (NORMAL) Ur Leukocyte Esterase NEGATIVE Ur Microscopic Review NOT INDICATED Urine Culture Comments NOT INDICATED Urine HCG, Qual 05/14/22 23:58 WBC RBC Hgb Hct MCV MCH MCHC RDW Plt Count MPV Neut # (Auto) Lymph # (Auto) [place] # (Auto) Eos # (Auto) Baso # (Auto) Absolute Nucleated RBC Nucleated RBC % Sodium Potassium Chloride Carbon Dioxide Anion Gap BUN Creatinine Estimated GFR (MDRD) Glucose Calcium Total Bilirubin AST ALT Alkaline Phosphatase Total Protein Albumin Globulin Albumin/Globulin Ratio Lipase Urine Color Urine Clarity Urine pH Ur Specific [place] Urine Protein Urine Glucose (UA) Urine Ketones Urine Occult Blood Urine Nitrite Urine Bilirubin Urine Urobilinogen Ur Leukocyte Esterase Ur Microscopic Review Urine Culture Comments Urine HCG, Qual NEGATIVE PD Medical Decision Making - ED course ED course: 36yF p/w BL UQ pain. labwork uncovered no acute emergent issues and exam was benign. plan to f/u with GI. return precautions given Departure - Departure Disposition: 01 Home, Self Care Clinical Impression: IBS (irritable bowel syndrome), Abdominal pain Condition: Stable Instructions: Abdominal Pain, ED IBS Prescriptions: Ondansetron Odt [Zofran Odt] 4 mg TL Q6H PRN #10 tablet PRN Reason: Nausea / Vomiting Comments: You are seen in the emergency department for abdominal pain. Your lab work and urine were normal. Please follow-up with your GI doctor. Return to the emergency department if you have any new or worsening symptoms or other concerns. Prescription for Zofran was sent electronically to [facility] [place] in [place]. Discharge Date/Time: 05/15/22 01:53
[2022-05-15 01:53] VITALS: BP 168/78
== END 2022-05-15 01:53 | disposition home or self-care (01) ==
LOC: ED 23:33
DX: K58.9 Irritable bowel syndrome, unspecified (principal); E11.9 Type 2 diabetes mellitus without complications; K21.9 Gastro-esophageal reflux disease without esophagitis; Z79.84 Long term (current) use of oral hypoglycemic drugs
CPT/HCPCS: 36415; 80053; 81003; 81025; 83690; 85025; 99282; 99283; Q0162; 81001; 87086

== ENCOUNTER 2022-06-19 22:49 | Emergency (ER) | payer MEDICAID ==
--- NOTE | 2022-06-19 23:38 | ED Physician Documentation ---
PD HPI HEADACHE - Stated complaint Stated Complaint: HEADACHE @ BASE OF NECK - Chief complaint Chief Complaint: Neuro - History obtained from History obtained from: Patient - History of Present Illness Timing - onset: Enter time (22:00) Timing - details: Abrupt onset Worst headache ever?: No: Worst headache ever? Location: Back (occipital) Quality: Throbbing Associated symptoms: Stiff neck, Nausea. No: Fever, Vomiting, Weakness, Numbness, Eye pain, Vision changes Improved by: Dark room Worsened by: Light, Noise - Additional information Additional information: HPI from patient. Patient c/o sudden onset occipital migraine headache, onset during intercourse when she climaxed. She has h/o similar headaches with same inciting factor and has seen a neurologist, has been diagnosed with orgasmic headache/migraine. Tonight's headache started at approximately 10 PM, no improvement with tinazidine, alleve. She also has a triptan (rizatryptan) but wasn't sure if she could take this after having taken the tinazidine. She says this headache is more severe and persistent than her typical migraine headache, and she feels pain and stiffness in her neck , which she says is also unusual for her migraine headaches Review of Systems Constitutional: denies: Fever Eyes: reports: Photophobia. denies: Loss of vision, Decreased vision GI: reports: Nausea. denies: Vomiting Musculoskeletal: reports: Neck pain Neurologic: reports: Headache. denies: Generalized weakness, Focal weakness, Numbness, Confused, Altered mental status PD PAST MEDICAL HISTORY - Past Medical History Respiratory: Sleep apnea, CPAP use Neuro: Migraines, Other Endocrine/Autoimmune: Type 2 diabetes GI: GERD, Chronic diarrhea Psych: Post traumatic stress disorder - Past Surgical History Past Surgical History: Yes General: Cholecystectomy Ortho: Other - Present Medications Home Medications: Ambulatory Orders Medication Instructions Recorded Confirmed Amitriptyline [Elavil] 10 mg PO DAILY 08/20/20 05/15/22 Escitalopram Oxalate [Lexapro] 20 mg PO DAILY 08/20/20 05/15/22 Propranolol [Inderal] 20 mg PO BID 08/20/20 05/15/22 traZODone [Desyrel] 50 mg PO HS 08/20/20 05/15/22 ISOtretinoin [Accutane] See Rx Instructions .ROUTE .COMPLEX 03/20/22 05/15/22 Rosuvastatin Calcium [Crestor] See Rx Instructions .ROUTE .COMPLEX 04/24/22 05/15/22 Colestipol HCl [Colestid] 1 g PO BID 05/15/22 05/15/22 Dicyclomine [Bentyl] 20 mg PO TID 05/15/22 05/15/22 Naproxen 500 mg PO PRN 05/15/22 Ondansetron Odt [Zofran Odt] 4 mg TL Q6H PRN #10 tablet 05/15/22 Psyllium Husk [Metamucil] 1.6 g PO BID 05/15/22 05/15/22 Rizatriptan Benzoate [Rizatriptan] 10 mg PO PRN 05/15/22 l-Norgest/E.estradiol-E.estrad 1 tab PO DAILY 05/15/22 05/15/22 [Simpesse 0.15-0.03-0.01 mg Tab] Tizanidine HCl 2 mg PO PRN 06/19/22 oxyCODONE [Roxicodone] 5 - 10 mg PO Q6H PRN #10 tablet 06/20/22 - Allergies Allergies/Adverse Reactions: Allergies Allergy/AdvReac Type Severity Reaction Status Date / Time No Known Drug Allergies Allergy Verified 06/19/22 22:53 - Social History Does the pt smoke?: No Smoking Status: Never smoker Does the pt drink ETOH?: No Does the pt have substance abuse?: No - Immunizations Immunizations are current?: Yes - POLST Patient has POLST: No PD ED PE NORMAL - Vitals Vital signs reviewed: Yes - General General: Alert and oriented X 3, Well developed/nourished, Other (appears uncom fortable, mild-moderate painful distress) - HEENT HEENT: PERRL, EOMI - Neck Neck: Supple, no meningeal sign - Cardiac Cardiac: RRR, No murmur - Respiratory Respiratory: No respiratory distress, Clear bilaterally - Neuro Neuro: Alert and oriented X 3, herbarium curator 2-12 intact, No motor deficit, No sensory deficit, Normal speech Eye Opening: Spontaneous Motor: Obeys Commands Verbal: Oriented GCS Score: 15 Results - Vitals Vitals: Oxygen O2 Source Room air - Labs Labs: Laboratory Tests 06/20/22 00:44 Sodium 135 Potassium 3.8 Chloride 100 L Carbon Dioxide 21 Anion Gap 14.0 H BUN 20 Creatinine 0.8 Estimated GFR (MDRD) 82 L Glucose 139 H Calcium 8.8 - Rads (name of study) CTA head Radiology: Prelim report reviewed, EMP read indepedently, See rad report CTA neck Radiology: Prelim report reviewed, See rad report PD Medical Decision Making - ED course Complexity details: reviewed results, re-evaluated patient, considered differential, d/w patient ED course: Given 2mg IV dilaudid as well as 4mg IV zofran; on reevaluation, patient is resting comfortably and reports excellent symptom relief. IV established for CTA head and neck. She says she has had many such previous headaches with same inciting event; however, she says she typically does not have to go to ED (can usually control symptoms at home), and so this is a more severe and persistent headache; she also notes that the neck pain, more pronounced on left and worse with turning head to either side, is not typical for her migraine headaches and thus CTA head and neck undertaken. No concerning nor diagnostic findings on these studies. BMP done (mostly to check kidney function prior to IV contrast) and this also has no remarkable / concerning findings. Results d/w patient. She is given percocet take-home pack, and rx for oxycodone provided. Return precautions discussed. I am prescribing a short course of short-acting opioid pain medication for this patient. I have reviewed the patients MANAGER TAX and no concerning findings were noted. I have discussed that the opioids are for short term therapy only, and will not be refilled from the ED. Departure - Departure Disposition: 01 Home, Self Care Clinical Impression: Orgasmic headache Condition: Good Instructions: ED Headache Migraine Prescriptions: oxyCODONE [Roxicodone] 5 - 10 mg PO Q6H PRN #10 tablet PRN Reason: Pain Comments: There were no concerning findings on the CAT scan of your head and neck (performed with intravenous contrast). A prescription for oxycodone (narcotic/opiate pain medication) has been electronically submitted to [facility] pharmacy in [place]. I am prescribing a short course of narcotic pain medication for you. These are potentially dangerous and addictive medications that should be used carefully. These medications may constipate you. Take an [id number] stool softener (docusate) twice daily with plenty of water while taking these medications. If you go 24 hours without a bowel movement, take [id number] miralax, per package instructions. Do not drink or drive while taking these medications. If you received narcotic or sedating medications while in the emergency department, do not drive for 24 hours. Store this medication in a safe, secure place and out of reach of children. It is a violation of federal law to give or sell this medication to another person or to use in a manner other than prescribed. The ED will not refill narcotic prescriptions, including prescriptions lost or stolen. To dispose of unwanted medications: 1. [facility] at [address] in [place] has a medication drop box. They accept prescription medications (in pill form) Saturday through Saturday 9:00 a.m. to 5:00 p.m. 2. [facility] [employer] accepts prescription medications (in pill form only) for disposal year round. Call for more information. 3. Contact the [facility] for the next [facility] sponsored prescription drug collection event. , [phone], or [phone]; Discharge Date/Time: 06/20/22 03:00
[2022-06-20] MEDS ORDERED: HYDROmorphone 1 MG/ML CARPUJECT IVP STA (00:06)
[2022-06-20] MEDS ORDERED: iohexoL-300 100 ML VIAL ONE (00:13)
[2022-06-20] MEDS ORDERED: ONDANSETRON 4 MG/2 ML VIAL IVP STA (00:53)
[2022-06-20 00:56] LABS: CALCIUM 8.8 mg/dL (8.5-10.3); CREATININE 0.8 mg/dL (0.4-1.0); POTASSIUM 3.8 mmol/L (3.5-5.0)
[2022-06-20] MEDS ORDERED: iohexoL-300 100 ML VIAL IVP ONE (01:42)
--- NOTE | 2022-06-20 01:50 | CT Report ---
PROCEDURE: ANGIO HEAD W/WO INDICATIONS: sudden onset severe occipital PICKARD CONTRAST: Omni 300 100 TECHNIQUE: Precontrast 4.5 mm thick angled axial sections acquired from the foramen magnum to the vertex. Afte r the administration of intravenous contrast, 1 mm thick sections acquired through the [place] is. Postcontrast 4.5 mm thick sections then re-acquired from the foramen magnum to the vertex. 3-di mensional xwesnaa-gxvdzgkpd-kfujuupubc (MIP) and/or volume rendering reformats were acquired of the c entral intracranial vasculature. For radiation dose reduction, the following was used: automated ex posure control, adjustment of mA and/or kV according to patient size. COMPARISON: CT head 02/15/2022 FINDINGS: Image quality: Excellent. BRAIN: CSF spaces: Basal cisterns are patent. No extra-axial fluid collections. Ventricles are normal in size and shape. Brain: No intracranial hemorrhage, mass, or mass effect. Ewing-white matter interface appears preser cleve. No abnormal intracranial enhancement. Skull and face: Calvarium and facial bones appear intact, without suspicious lesions. Orbits appear normal. Sinuses: There is near-complete mucosal opacification of the left maxillary sinus. Mild because of th ickening also demonstrated within the bilateral ethmoid and right maxillary sinuses. The mastoid air cells are clear. HEAD CT ANGIOGRAPHY: Anterior circulation: Intracranial internal carotid arteries are normal in size and appear patent bi laterally. There is mild atherosclerotic calcification along the cavernous segments of the internal carotid arteries. The paired anterior cerebral arteries appear patent bilaterally. The anterior com municating artery also appears patent. The middle cerebral arteries appear patent bilaterally. No hi gh-grade stenosis, occlusion, or filling defects. No cerebral aneurysms identified. Posterior circulation: Visualized portions of the vertebral arteries demonstrate a left dominant julia tebral basilar system with a diminutive right vertebral artery which terminates in the posterior infe rior cerebellar artery. The vertebral artery supplied by the left vertebral artery. The posterior cer ebral arteries appears patent bilaterally. No high-grade stenosis, occlusion, or filling defects. N o cerebral aneurysms identified. IMPRESSION: 1. No acute intracranial abnormality. 2. No high-grade stenosis or occlusion of the central intracranial arteries. Reviewed by: Chase Thornton MD on 06/20/2022 1:48 AM PST Approved by: Chase Thornton MD on 06/20/2022 1:48 AM PST Station ID: [id number]
--- NOTE | 2022-06-20 01:53 | CT Report ---
PROCEDURE: ANGIO NECK W INDICATIONS: sudden onset severe neck pain CONTRAST: Omni 300 100 TECHNIQUE: After the administration of intravenous contrast, 1.5 mm axial sections acquired from the aortic arch to the [place]. Coronal 3-D maximum intensity projection (MIP) and/or volume rendering ref ormats were then performed. For radiation dose reduction, the following was used: automated exposur e control, adjustment of mA and/or kV according to patient size. COMPARISON: None. FINDINGS: Image quality: Excellent. NECK CT ANGIOGRAPHY: Carotid system: The great vessels demonstrate a four-vessel aortic arch with separate origin of the The origins of the common carotid arteries appear patent. The common carotid arteries demonstrate no rmal caliber. There is a retropharyngeal course of the common carotid arteries. The internal carotid arteries demonstrate normal calibers and courses. Posterior circulation: The origins of the vertebral arteries both appear patent. The more superior extracranial portions of both vertebral arteries also demonstrate normal courses and calibers. They join to form a patent basilar artery. Soft tissues: Visualized neck soft tissues demonstrate no suspicious abnormalities. Bones: No suspicious bony lesions. Visualized cervical spine demonstrates straightening of the cerv ical lordosis. There is multilevel degenerative disc disease and facet joint arthropathy. IMPRESSION: 1. No high-grade stenosis or occlusion of the neck arteries. The estimate of stenosis included in the report of the imaging study was calculated using the NASCET method Reviewed by: Chase Gonzalez MD on 06/20/2022 1:52 AM PST Approved by: Chase Gonzalez MD on 06/20/2022 1:52 AM PST Station ID: [id number]
[2022-06-20 02:46] VITALS: BP 131/84
[2022-06-20] MEDS ORDERED: oxyCODONE/ACET 5/325 Prepack 4 PO STA (02:57)
== END 2022-06-20 03:00 | disposition home or self-care (01) ==
LOC: ED 22:49
DX: G44.82 Headache associated with sexual activity (principal); E11.9 Type 2 diabetes mellitus without complications; Z79.4 Long term (current) use of insulin
CPT/HCPCS: 36415; 70496; 70498; 80048; 96374; 96375; 99283; 99284; J1170; Q9967

== ENCOUNTER 2022-07-17 12:31 | Outpatient (CLI) | payer MEDICAID ==
[2022-07-17 12:43] LABS: HCG UR QUAL NEGATIVE
== END 2022-07-17 12:32 | disposition home or self-care (01) ==
LOC: LAB 12:31
PROVIDERS: ATTEND Nurse Practitioner
DX: Z79.899 Other long term (current) drug therapy (principal)
CPT/HCPCS: 81025

== ENCOUNTER 2022-07-26 14:06 | Outpatient (CLI) | payer MEDICAID ==
[2022-07-26 14:46] VITALS: BP 132/82
--- NOTE | 2022-07-26 14:46 | SLEEP CARE CONSULTATION ---
Information from patient questionnaire entered by Yandy Howell. I have reviewed and concur with the information entered by Yandy Howell. This document represents the service I personally performed and the decisions made by me, Meena Rasheed ARNP. History of Present Illness Service Date and Time: 07/26/2022 1406 Previous diagnosis: Severe, Obstructive Sleep Apnea-Hypopnea Syndrome AHI: 31.8 (in 2021) Reason for follow up: three month (F/U) Accompanied by: Partner Equipment type: CPAP (NATHAN NEED MACHINE) Equipment obtained from: Other ([facility]; getting supplies) Mask style: Nasal pillows (Brevida) Backup mask available: Yes (other mask) Last cushion change: 2 weeks Prior sleep studies: No Type of Sleep Study: Home sleep study (F/U HST, 01/03/2022 [facility], POS,) HPI additional information: RAJAT MICHAEL was diagnosed to have severe, AHI 31.8, obstructive sleep apnea- hypopnea syndrome and returned today for CPAP therapy three month follow-up. Sleep Study - Results Type of Sleep Study: Home sleep study (F/U HST, 01/03/2022 [facility], POS,) Prior sleep studies: No CPAP Compliance Data - Data Reviewed with Patient Average duration of nightly device use: 8:42 hours Compliance rate %: 98 (88/90 days used) Current pressure setting (cmH2O): 6-10 Average residual AHI: 1 Subjective Missed days of use due to: reports: illness, other (power outage) Patient concerns: reports: mask leak noise (occasional at end of pillows life). denies: aerophagia, mask discomfort, air blowing in eyes, condensation in mask/hose, nasal congestion, dry mouth, nose, throat, epistaxis Observed to snore while using device: Yes (not often) Current pressure setting perceived as: comfortable On therapy, patient: reports: sleeping better, awakening more refreshed, being more awake and alert during the day, more rested overall. denies: drowsiness while driving Initial [place] Sleepiness Scale score: 11 (12/19/2021) Current [place] Sleepiness Scale score: 5 (07/26/22) Allergies and Home Medications Known drug allergies: No Drug allergies reviewed: Yes Home medication list reviewed: Yes (Farxiga for Diabetes) Review of Systems Review of systems same as previous: Yes (no charges) Physical Exam Vital signs obtained and entered by: YANDY Brownlee MA Blood Pressure: 132/82 (LEFT ARM) Cuff size: long Heart Rate: 94 O2 Saturation: 97 Height: 5 ft 6 in Weight: 0 oz (PT REFUSED ) Body Mass Index: 0.0 BMI Classification: Underweight Impression and Plan 1. Obstructive Sleep Apnea-Hypopnea Syndrome, severe, with good treatment compliance and god apnea control. On CPAP therapy, the patient has better sleep quality and is more rested overall. She is using a nasal pillows mask that is more comfortable than the last mask she tried and she is comfortable with her CPAP use. Patient denies problems with oral dryness, nasal congestion, epistaxis, skin irritation or aerophagia. Patient's apnea severity and rationale for treatment to reduce apnea, improve sleep quality and reduce cardiovascular and cerebrovascular events was reviewed. I also reviewed the benefit of consistent device use of CPAP for gastric reflux, anxiety, migraines and PTSD. 2. Obesity, unspecified. Patient declined being weighted today. She states she is aware of the connection between weight, weight loss and her health. She declined being counseled on weight loss. Obesity increases the risk of apnea, CPAP pressure requirements and overall health risks especially cardiovascular and diabetes. * Continue auto CPAP pressure at 6-10 cmH2O * Notify me if snoring with mask or feeling that the pressure is too much or too little * Attempt to lose weight * Call this office if any problems using CPAP * Return for follow up in 6 months, or sooner if concerns arise Counseling Topics: Spare mask, Weight loss health impact Visit Type: In Office Other Participants: Spouse/Significant Other Time Spent with Patient (minutes): 20 Provider Statement: I spent 100% of the Face to Face Visit with the patient with greater than 50% spent counseling the patient and coordination of care.
== END 2022-07-26 14:07 | disposition home or self-care (01) ==
LOC: SC 14:06
PROVIDERS: ATTEND Nurse Practitioner Family
DX: G47.33 Obstructive sleep apnea (adult) (pediatric) (principal); E66.9 Obesity, unspecified; Z79.899 Other long term (current) drug therapy
CPT/HCPCS: 81025; 99212; 99213

== ENCOUNTER 2022-07-26 14:58 | Outpatient (CLI) | payer MEDICAID ==
[2022-07-26 15:17] LABS: HCG UR QUAL NEGATIVE
== END 2022-07-26 14:59 | disposition home or self-care (01) ==
LOC: LAB 14:58
PROVIDERS: ATTEND Nurse Practitioner
DX: Z79.899 Other long term (current) drug therapy (principal)
CPT/HCPCS: 81025

== ENCOUNTER 2022-08-16 11:47 | Outpatient (CLI) | payer MEDICAID ==
[2022-08-16 12:11] LABS: HCG UR QUAL NEGATIVE
== END 2022-08-16 11:48 | disposition home or self-care (01) ==
LOC: LAB 11:47
PROVIDERS: ATTEND Nurse Practitioner
DX: Z79.899 Other long term (current) drug therapy (principal)
CPT/HCPCS: 81025

== ENCOUNTER 2022-08-18 19:17 | Emergency (ER) | payer MEDICAID ==
[2022-08-18 19:28] VITALS: BP 154/100
--- NOTE | 2022-08-18 19:53 | ED Physician Documentation ---
History of Present Illness - Stated complaint Stated Complaint: LT SHOULDER INJURY/NUMBNESS - Chief complaint Chief Complaint: Ext Problem - History obtained from History obtained from: Patient - History of Present Illness Pain level max: 1 Pain level now: 1 - Additonal information Additional information: 36-year-old female presents to the emergency department stating that she had a left shoulder dislocation yesterday that was reduced at [facility] in [place]. She states this morning she woke up and there was slight numbness and tingling to her left upper arm. It is feeling better currently, but still mildly numb. She states that she is not having much pain currently. Nothing seems to make it better or worse. She is able to use the hand and feels the hand. Review of Systems Constitutional: denies: Fever : denies: Now [facility] PAST MEDICAL HISTORY - Past Medical History Past Medical History: Yes Respiratory: Sleep apnea, CPAP use Neuro: Migraines, Other Endocrine/Autoimmune: Type 2 diabetes GI: GERD, Chronic diarrhea Psych: Post traumatic stress disorder - Past Surgical History Past Surgical History: Yes General: Cholecystectomy Ortho: Other - Present Medications Home Medications: Ambulatory Orders Medication Instructions Recorded Confirmed Amitriptyline [Elavil] 10 mg PO DAILY 08/20/20 05/15/22 Escitalopram Oxalate [Lexapro] 20 mg PO DAILY 08/20/20 05/15/22 Propranolol [Inderal] 20 mg PO BID 08/20/20 05/15/22 traZODone [Desyrel] 50 mg PO HS 08/20/20 05/15/22 ISOtretinoin [Accutane] See Rx Instructions .ROUTE .COMPLEX 03/20/22 05/15/22 Rosuvastatin Calcium [Crestor] See Rx Instructions .ROUTE .COMPLEX 04/24/22 05/15/22 Colestipol HCl [Colestid] 1 g PO BID 05/15/22 05/15/22 Dicyclomine [Bentyl] 20 mg PO TID 05/15/22 05/15/22 Naproxen 500 mg PO PRN 05/15/22 Ondansetron Odt [Zofran Odt] 4 mg TL Q6H PRN #10 tablet 05/15/22 Psyllium Husk [Metamucil] 1.6 g PO BID 12/27/22 12/27/22 Rizatriptan Benzoate [Rizatriptan] 10 mg PO PRN 05/15/22 l-Norgest/E.estradiol-E.estrad 1 tab PO DAILY 05/15/22 05/15/22 [Simpesse 0.15-0.03-0.01 mg Tab] Tizanidine HCl 2 mg PO PRN 06/19/22 oxyCODONE [Roxicodone] 5 - 10 mg PO Q6H PRN #10 tablet 06/20/22 - Allergies Allergies/Adverse Reactions: Allergies Allergy/AdvReac Type Severity Reaction Status Date / Time No Known Drug Allergies Allergy Verified 08/18/22 19:24 - Social History Does the pt smoke?: No Smoking Status: Never smoker Does the pt drink ETOH?: No Does the pt have substance abuse?: No - Immunizations Immunizations are current?: Yes - POLST Patient has POLST: No PD ED PE NORMAL - Vitals Vital signs reviewed: Yes - General General: Alert and oriented X 3, No acute distress - HEENT HEENT: Moist mucous membranes - Neck Neck: Supple, no meningeal sign - Derm Derm: Warm and dry - Extremities Extremities: Other (Patient's left arm is in a sling. She has mild decrease sensation over the anterior aspect of the bicep. Axillary nerve is intact. Distal arm is neurovascular intact as well. Able to use the hand and all fingers freely.) - Neuro Neuro: Alert and oriented X 3 Results - Vitals Vitals: Vital Signs - 24 hr 08/18/22 19:24 Temperature 36.5 C Heart Rate 99 Respiratory 16 Rate Blood Pressure 154/100 H O2 Saturation 98 Oxygen O2 Source Room air - Rads (name of study) Left shoulder x-ray Relevant Findings:: Final report received, See rad report (No acute abnormality) PD Medical Decision Making - ED course Complexity details: reviewed results, re-evaluated patient, considered differential, d/w patient, d/w family ED course: Patient with what appears to be a neuropraxia after a shoulder dislocation yesterday. No acute findings on x-ray today. Suspect that this will improve over the next few days to weeks. We will have her follow-up with her orthopedist for further care. Patient counseled regarding signs and symptoms for which I believe and urgent re-evaluation would be necessary. Patient with good understanding of and agreement to plan and is comfortable going home at this time This document was made in part using voice recognition software. While efforts are made to proofread this document, sound alike and grammatical errors may occur. Departure - Departure Disposition: 01 Home, Self Care Clinical Impression: Paresthesia Neuropraxia of left upper extremity Qualifiers: Encounter type: initial encounter Qualified Code(s): S44.92XA - Injury of unspecified nerve at shoulder and upper arm level, left arm, initial encounter Condition: Good Instructions: ED Dislocation Shoulder Redu Follow-Up: your,doctor as instructed by rian [Other] Comments: As we discussed, the numbness you are feeling is likely secondary to the shoulder dislocation and should usually resolve on its own. There are no acute findings on x-ray today. Please stay in the sling. Please follow-up with your orthopedist for further care. Discharge Date/Time: 08/18/22 20:17
--- NOTE | 2022-08-18 20:05 | XRAY Report ---
PROCEDURE: Shoulder 3 View LT INDICATIONS: L SHOULDER PAIN S/P DISLOCATION YESTERDAY TECHNIQUE: 3 views of the shoulder were acquired. COMPARISON: None. FINDINGS: Bones: No fractures or dislocations. No suspicious bony lesions. Visualized ribs appear intact. Soft tissues: No suspicious soft tissue calcifications. IMPRESSION: Left shoulder without acute fracture or dislocation. If there is continued clinical concern for internal soft tissue derangement, consider further evalua tion with outpatient MRI. Reviewed by: Glenn Alvarez MD on 08/18/2022 8:04 PM PDT Approved by: Glenn Alvarez MD on 08/18/2022 8:04 PM PDT Station ID: [id number]
== END 2022-08-18 20:17 | disposition home or self-care (01) ==
LOC: ED 19:17
DX: S44.92XA Injury of unspecified nerve at shoulder and upper arm level, left arm, initial encounter (principal); X58.XXXA Exposure to other specified factors, initial encounter
CPT/HCPCS: 99283

== ENCOUNTER 2022-10-03 09:36 | Outpatient (CLI) | payer MEDICAID ==
[2022-10-03 10:11] LABS: HCG UR QUAL NEGATIVE
== END 2022-10-03 09:37 | disposition home or self-care (01) ==
LOC: LAB 09:36
PROVIDERS: ATTEND Nurse Practitioner
DX: Z79.899 Other long term (current) drug therapy (principal)
CPT/HCPCS: 81025

== ENCOUNTER 2022-11-12 08:00 | Outpatient (CLI) | payer MEDICAID ==
[2022-11-12 14:12] LABS: BILIRUBIN,URINE NEGATIVE (NEGATIVE); GLUCOSE, URINE (UA) >=1000 mg/dL (NEGATIVE); KETONES,URINE (UA) NEGATIVE (NEGATIVE); LEUKOCYTE ESTERASE, URINE NEGATIVE (NEGATIVE); NITRITE,URINE NEGATIVE (NEGATIVE); OCCULT BLOOD,URINE LARGE (NEGATIVE); PROTEIN,URINE NEGATIVE (NEGATIVE); UROBILINOGEN,URINE 0.2 (NORMAL) E.U./dL (NORMAL)
[2022-11-12 14:21] LABS: BACTERIA,URINE Few /HPF (None Seen); CASTS, URINE 3-5 Hyaline Casts /LPF; CLARITY,URINE CLEAR (CLEAR); MUCUS,URINE Few Strands; RBC,URINE TNTC /HPF (0-5); SQUAMOUS EPITHELIAL CELL,UR FEW Squamous (<= Few)
== END 2022-11-12 23:59 | disposition home or self-care (01) ==
LOC: LAB.WC 08:00
PROVIDERS: ATTEND Nurse Practitioner
DX: R30.0 Dysuria (principal)
CPT/HCPCS: 81001; 87086

== ENCOUNTER 2023-07-22 08:00 | Outpatient (CLI) | payer BC, MEDICAID ==
[2023-07-22 17:03] LABS: BILIRUBIN,URINE NEGATIVE (NEGATIVE); GLUCOSE, URINE (UA) >=1000 mg/dL (NEGATIVE); KETONES,URINE (UA) NEGATIVE (NEGATIVE); LEUKOCYTE ESTERASE, URINE NEGATIVE (NEGATIVE); NITRITE,URINE NEGATIVE (NEGATIVE); OCCULT BLOOD,URINE TRACE-INTA (NEGATIVE); PH,URINE 5.5 PH (5.0-7.5); PROTEIN,URINE NEGATIVE (NEGATIVE); UROBILINOGEN,URINE 0.2 (NORMAL) E.U./dL (NORMAL)
[2023-07-22 17:19] LABS: CLARITY,URINE CLEAR (CLEAR)
[2023-07-22 23:09] LABS: BACTERIAL VAGINOSIS DNA NEGATIVE (NEGATIVE); CANDIDA GLABRATA DNA POSITIVE (NEGATIVE); CANDIDA GROUP DNA NEGATIVE (NEGATIVE); CANDIDA KRUSEI DNA NEGATIVE (NEGATIVE); TRICHOMONAS VAGINALIS DNA NEGATIVE (NEGATIVE)
== END 2023-07-22 23:59 | disposition home or self-care (01) ==
LOC: LAB.WC 08:00
PROVIDERS: ATTEND Nurse Practitioner
DX: N89.8 Other specified noninflammatory disorders of vagina (principal)
CPT/HCPCS: 81001; 81003; 81514; 87086

== ENCOUNTER 2023-08-14 08:00 | Outpatient (CLI) | payer BC ==
[2023-08-14 14:10] LABS: BACTERIAL VAGINOSIS DNA NEGATIVE (NEGATIVE); CANDIDA GLABRATA DNA NEGATIVE (NEGATIVE); CANDIDA GROUP DNA NEGATIVE (NEGATIVE); CANDIDA KRUSEI DNA NEGATIVE (NEGATIVE); TRICHOMONAS VAGINALIS DNA NEGATIVE (NEGATIVE)
== END 2023-08-14 23:59 | disposition home or self-care (01) ==
LOC: LAB.WC 08:00
PROVIDERS: ATTEND Nurse Practitioner
DX: N89.8 Other specified noninflammatory disorders of vagina (principal)
CPT/HCPCS: 81514

== ENCOUNTER 2023-11-20 08:00 | Outpatient (CLI) | payer BC ==
[2023-11-20 22:51] LABS: BACTERIAL VAGINOSIS DNA NEGATIVE (NEGATIVE); CANDIDA GLABRATA DNA POSITIVE (NEGATIVE); CANDIDA GROUP DNA NEGATIVE (NEGATIVE); CANDIDA KRUSEI DNA NEGATIVE (NEGATIVE); TRICHOMONAS VAGINALIS DNA NEGATIVE (NEGATIVE)
== END 2023-11-20 23:59 | disposition home or self-care (01) ==
LOC: LAB.WC 08:00
PROVIDERS: ATTEND Obstetrics & Gynecology
DX: N89.8 Other specified noninflammatory disorders of vagina (principal)
CPT/HCPCS: 81514

== ENCOUNTER 2023-12-03 08:09 | Outpatient (CLI) | payer BC ==
[2023-12-03 08:41] LABS: BASOPHILS # (AUTO) 0.1 10^3/uL (0.0-0.1); BASOPHILS % (AUTO) 0.5 %; HCT - HEMATOCRIT 45.3 % (37.0-47.0); HGB - HEMOGLOBIN 14.4 g/dL (12.0-16.0); LYMPHOCYTES # (AUTO) 3.1 10^3/uL (1.5-3.5); LYMPHOCYTES % (AUTO) 29.5 %; MEAN CORPUSCULAR HEMOGLOBIN 26.4 pg (27.0-31.0); MEAN CORPUSCULAR HGB CONC 31.8 g/dL (32.0-36.0); MEAN CORPUSCULAR VOLUME 83.1 fL (81.0-99.0); MONOCYTES # (AUTO) 0.6 10^3/uL (0.0-1.0); MONOCYTES % (AUTO) 6.1 %; NEUTROPHILS # (AUTO) 6.7 10^3/uL (1.5-6.6); NEUTROPHILS % (AUTO) 63.7 %; PLT - PLATELET COUNT 326 10^3/uL (130-450); RED BLOOD COUNT 5.45 10^6/uL (4.20-5.40); RED CELL DISTRIBUTION WIDTH 14.9 % (12.0-15.0); WHITE BLOOD COUNT 10.5 x10^3/uL (4.8-10.8)
[2023-12-03 08:50] LABS: ALBUMIN 3.7 g/dL (3.2-5.5); ALBUMIN/GLOBULIN RATIO 1.1 (1.0-2.2); ALKALINE PHOSPHATASE 77 IU/L (42-121); ALT ALANINE AMINOTRANSFERASE 12 IU/L (10-60); AST ASPARTATE AMINOTRANSFERASE 18 IU/L (10-42); BILIRUBIN,TOTAL 0.4 mg/dL (0.2-1.0); BUN - BLOOD UREA NITROGEN 13 mg/dL (6-20); CALCIUM 9.1 mg/dL (8.5-10.3); CARBON DIOXIDE - CO2 22 mmol/L (21-32); CHLORIDE 101 mmol/L (101-111); CHOL/HDL RATIO 4.9 (<4.4); CHOLESTEROL 158 mg/dL; CREATININE 0.7 mg/dL (0.6-1.3); GFR - MDRD 94 (>89); GLUCOSE 160 mg/dL (74-104); HDL CHOLESTEROL 32 mg/dL; POTASSIUM 4.1 mmol/L (3.5-4.5); SODIUM 133 mmol/L (135-145); TOTAL PROTEIN 7.2 g/dL (6.4-8.9); TRIGLYCERIDES 466 mg/dL
[2023-12-03 08:53] LABS: CREATININE,URINE 61.5 mg/dL
[2023-12-03 08:54] LABS: MICROALBUMIN,URINE < 0.7 mg/dL
[2023-12-03 09:01] LABS: LDL CHOLESTEROL,DIRECT 82 mg/dL (75-193); LDLD/HDL RATIO 2.6 (<4.4)
[2023-12-03 09:05] LABS: THYROID STIMULATING HORMONE 2.49 uIU/mL (0.34-5.60)
[2023-12-03 10:34] LABS: ESTIMATED AVERAGE GLUCOSE 163 mg/dL (70-100); HEMOGLOBIN A1c% 7.3 % (4.27-6.07)
== END 2023-12-03 08:10 | disposition home or self-care (01) ==
LOC: LAB 08:09
PROVIDERS: ATTEND Physician Assistant
DX: E11.9 Type 2 diabetes mellitus without complications (principal)
CPT/HCPCS: 36415; 80053; 80061; 82043; 82570; 83036; 83721; 84443; 85025